=== PATIENT | male | born 1960 | race Caucasian/White ===

== ENCOUNTER 2024-10-14 18:43 | Emergency (ER) | payer BC ==
[~2024-10-14] VITALS: Ht 170.2 cm; Wt 80.0 kg
[2024-10-14] MEDS ORDERED: KETOROLAC TROMETHAMINE 30 MG/ML SDV IV STA (19:13)
[2024-10-14] MEDS ORDERED: MORPHINE SULFATE 4 MG/ML VIAL IV STA (19:13)
[2024-10-14] MEDS ORDERED: SODIUM CHLORIDE 0.9% 1,000 ML IV STA (19:13)
[2024-10-14] MEDS ORDERED: ONDANSETRON HCl 4 MG/2 ML SDV IV STA (19:13)
[2024-10-14] MEDS ORDERED: LISINOPRIL10 MG PO (19:15)
[2024-10-14] MEDS ORDERED: ATORVASTATIN CA10 MG PO (19:15)
[2024-10-14] MEDS ORDERED: DUPIXENT (19:16)
[2024-10-14] MEDS ORDERED: LEVOTHYROXIN25 MC1 PO (19:16)
[2024-10-14 19:42] LABS: BASO% 0.1 % (0-3); EOS% 0.2 % (0-8); HEMATOCRIT 46.2 % (39.0-50.0); HEMOGLOBIN 15.9 g/dl (14.0-18.0); IMMATURE GRANULOCYTES 0.2 % (0.0-5.0); LYMPH% 7.2 % (15-41); MEAN CELL VOLUME 88.8 fL CALC (80.0-100.0); MEAN CORPUSCULAR HGB 30.6 pG CALC (26.0-32.0); MEAN CORPUSCULAR HGB CONC 34.4 g/dL CAL (32.0-36.0); MONO% 5.1 % (2-13); NEUT# 11.49 thou/uL (1.82-7.42); NEUT% 87.2 % (42-76); RED BLOOD COUNT 5.2 mill/uL (4.70-6.10); RED CELL DISTRI WIDTH 14.1 % (11.5-15.5)
[2024-10-14 19:44] LABS: URINE BILIRUBIN - DIPSTICK Negative (NEGATIVE); URINE BLOOD DIPSTICK Small (NEGATIVE); URINE GLUCOSE - DIPSTICK Negative (NEGATIVE); URINE KETONE Negative (NEGATIVE); URINE LEUK ESTERASE Negative (NEGATIVE); URINE NITRITE - DIPSTICK Negative (Negative); URINE PH 5.5 (4.5-8.0); URINE PROTEIN - DIPSTICK Negative (NEG-TRACE); URINE SPECIFIC GRAVITY 1.015; URINE UROBILINOGEN - DIPSTICK 0.2 E.U./dL (0.2)
[2024-10-14 19:45] LABS: URINE COLOR Yellow
[2024-10-14 19:59] LABS: ALBUMIN 4.9 g/dL (3.2-5.0); BILIRUBIN, TOTAL 1.2 mg/dL (0.2-1.3); CREATININE 1.8 mg/dL (0.7-1.3); POTASSIUM 3.9 mmol/l (3.5-5.1); TOTAL PROTEIN 8.1 g/dL (6.3-8.2)
[2024-10-14] MEDS ORDERED: TAMSULOSIN HCL 0.4 MG CAP PO STA (20:04)
[2024-10-14] MEDS ORDERED: LORTAB 5/3255 MG PO (20:08)
[2024-10-14] MEDS ORDERED: TAMSULOSIN0.4 MG PO (20:08)
[2024-10-14] MEDS ORDERED: oxyCODONE 5MG/ ACETAMINOPHEN 325MG TAB PO ONE (20:20)
[2024-10-14 20:46] VITALS: BP 133/82
[2024-10-14 20:52] VITALS: BP 133/82
== END 2024-10-14 20:52 | disposition home or self-care (01) | DRG 694 ==
LOC: ED 18:43
PROVIDERS: Nurse Practitioner
DX: N20.1 Calculus of ureter (principal); I10 Essential (primary) hypertension; Z87.442 Personal history of urinary calculi
CPT/HCPCS: J2405